=== PATIENT | female | born 1960 | race Caucasian/White ===

== ENCOUNTER 2019-11-26 16:49 | Outpatient (CLI) | payer MEDICARE, SELFPAY ==
--- NOTE | ~2019-11-26 | MR_ITS ---
EXAMINATION: MR brain/brain stem wo con DATE: 11/26/2019 17:38 INDICATION: Headaches. Dizziness and giddiness. Abnormality of gait and mobility with falling. TECHNIQUE: Magnetic resonance imaging (MRI) of the brain and brainstem was performed without intraven ous contrast. Sequences included sagittal and axial T1-weighted SE, axial diffusion-weighted FS SE, a xial T2*-weighted GRE, axial T2-weighted FLAIR, and axial T2-weighted FSE. Apparent diffusion coeffic ient (ADC) maps were created. COMPARISON: None. FINDINGS: There are no areas of restricted diffusion to suggest acute infarction. No intracranial hemorrhage or abnormal intra-axial mass lesion. There is an extra-axial dural based 10 x 6 x 6 mm mass overlying t he posterior left frontal lobe most likely representing a meningioma. Single small focus of nonspecif ic increased T2-weighted signal intensity in the left frontal cerebral white matter which is within n ormal limits for age. There are no intraparenchymal signal abnormalities seen on the other pulse sequ ences. The ventricles are symmetric and normal in size. There are no abnormal extra-axial fluid colle ctions. Flow voids are seen in the cerebral arteries on the T2-weighted sequences consistent with the ir expected patency. Mild mucosal thickening the bilateral anterior ethmoid air cells. Visualized orb its and soft tissues are unremarkable. IMPRESSION: 1. Normal for age brain. No acute infarct or other evident acute intracranial process. 2. 10 x 6 x 6 mm dural based extra-axial mass overlying the left frontal lobe most likely representin g a meningioma. Reviewed, dictated and finalized at location A. [employer] IMPRESSION: 1. Normal for age brain. No acute infarct or other evident acute intracranial p rocess. 2. 10 x 6 x 6 mm dural based extra-axial mass overlying the left frontal lobe m ost likely representing a meningioma.
== END 2019-11-26 16:50 | disposition home or self-care (01) ==
PROVIDERS: PCP Family Medicine; Visit Provider Family Medicine
DX: R42 Dizziness and giddiness (principal); R13.10 Dysphagia, unspecified; R26.89 Other abnormalities of gait and mobility
CPT/HCPCS: 70551

== ENCOUNTER 2019-12-14 08:00 | Outpatient (CLI) | payer MEDICARE, SELFPAY ==
--- NOTE | ~2019-12-14 | MR_ITS ---
EXAMINATION: MR brain/brain stem w con EXAM DATE: 12/14/2019 09:46 INDICATION: Abnormal brain scan. TECHNIQUE: Magnetic resonance imaging (MRI) of the brain/brain stem obtained with contrast. Sagittal, coronal, axial T1-weighted sequence, axial T2-weighted sequence obtained. Correlation was made with noncontrast brain MRI 11/26/2019. FINDINGS: There are 2 subcentimeter masses overlying the left frontal lobe, about 1 cm apart from eac h other, unchanged in size and likely meningiomas. No other areas of abnormal enhancement. There are no areas of restricted diffusion to suggest acute infarction. There is no acute hemorrhage seen on t he T2*, a hemosiderin sensitive sequence. No intraparenchymal brain mass. The ventricles are normal in size. There are no extra-axial collections. Flow voids are seen in the cerebral arteries on the T2-weighted sequences consistent with their expected patency. The orbits are unremarkable. Soft tis shannan is unremarkable. IMPRESSION: 1. Two small dural based masses overlying left frontal lobe, most likely meningiomas. Reviewed, dictated and finalized at location A. IMPRESSION: 1. Two small dural based masses overlying left frontal lobe, most likely menin giomas.
[2019-12-14 09:16] LABS: Estimated Glomerular Filt Rate > 60
== END 2019-12-14 08:01 | disposition home or self-care (01) ==
PROVIDERS: PCP Family Medicine; Visit Provider Psychiatry & Neurology Neurology
DX: R94.02 Abnormal brain scan (principal); Z79.899 Other long term (current) drug therapy
CPT/HCPCS: 36415; 70552; A9577

== ENCOUNTER 2019-12-25 09:18 | Outpatient (CLI) | payer MEDICARE, SELFPAY ==
--- NOTE | ~2019-12-25 | MR_ITS ---
EXAMINATION: MR cervical spine wo con DATE: 12/25/2019 10:31 INDICATION: Degeneration of cervical intervertebral discs. TECHNIQUE: Magnetic resonance imaging (MRI) of the cervical spine was performed without intravenous c ontrast. Sequences included sagittal T2-weighted FSE, sagittal T2-weighted FS FSE, sagittal T1-weight ed FSE, axial MERGE and axial T2-weighted FSE. COMPARISON: None FINDINGS: Straightening of the normal cervical lordosis. 1 mm anterolisthesis L3 on L4. Anterior spinal fusion at C5-C7 with anterior plate and screw fixation at C6-C7. Vertebral body heights are normal. Bone ma rrow signal intensity is normal. Mild disc height loss at C4-C5 and at T3-T4 and T4-T5. Cord signal i ntensity is normal. Low-lying right cerebellar tonsil which extends 3 mm below the level of the krista en magnum. Cervical soft tissues are unremarkable. The following disc levels are specifically discuss ed: C2-C3: The disc does not extend beyond the endplate margin. There is no uncovertebral joint osteoarth ritis. There is mild to moderate right and moderate left facet joint osteoarthritis. There is no neur al foraminal stenosis. There is no central canal stenosis. C3-C4: Disc is mildly bulging. There is mild bilateral uncovertebral joint osteoarthritis. There is s evere right and moderate to severe left facet joint osteoarthritis. There is mild to moderate bilater al neural foraminal stenosis. There is mild central canal stenosis. C4-C5: The disc does not extend beyond the endplate margin. There is mild right and moderate left unc overtebral joint osteoarthritis. There is moderate left and mild to moderate right facet joint osteoa rthritis. There is mild left neural foraminal stenosis. There is no central canal stenosis. C5-C6: Disc space is fused with mild central osteophyte formation. There is mild bilateral facet join t osteoarthritis. There is minimal bilateral neural foraminal stenosis. There is mild central canal s tenosis. C6-C7: Disc space is fused. There is mild bilateral facet joint osteoarthritis. There is mild bilater al, left greater than right, neural foraminal stenosis. There is no central canal stenosis. C7-T1: Disc is mildly bulging. There is mild bilateral uncovertebral joint osteoarthritis. There is m ild to moderate left and severe right facet joint osteoarthritis. There is mild bilateral neural fora nathalie stenosis. There is mild central canal stenosis. IMPRESSION: 1. Mild cervical spondylosis with C5-C7 anterior spinal fusion. 2. Low-lying right cerebellar tonsil extending 3 mm caudal to the level of the foramen magnum. Reviewed, dictated and finalized at location A.
== END 2019-12-25 09:19 | disposition home or self-care (01) ==
PROVIDERS: PCP Family Medicine; Visit Provider Family Medicine
DX: M50.30 Other cervical disc degeneration, unspecified cervical region (principal); M47.892 Other spondylosis, cervical region; R93.0 Abnormal findings on diagnostic imaging of skull and head, not elsewhere classified
CPT/HCPCS: 72141